=== PATIENT | female | born 1945 | race Caucasian/White ===

== ENCOUNTER 2020-01-27 13:25 | Emergency (ER) | payer OTHER ==
[~2020-01-27] VITALS: Ht 160 cm; Wt 65.0 kg
[2020-01-27] MEDS ORDERED: ACETAMINOPHEN 325MG TABLET PO ONE (14:30)
[2020-01-27 16:00] VITALS: BP 129/92
== END 2020-01-27 16:02 | disposition home or self-care (01) ==
LOC: ER 13:25
DX: S70.01XA Contusion of right hip, initial encounter (principal); S30.0XXA Contusion of lower back and pelvis, initial encounter; J45.909 Unspecified asthma, uncomplicated; Z88.0 Allergy status to penicillin; W01.0XXA Fall on same level from slipping, tripping and stumbling without subsequent striking against object, initial encounter; Y93.89 Activity, other specified; Y92.512 Supermarket, store or market as the place of occurrence of the external cause
CPT/HCPCS: 72100; 73502; 73552; 99284